=== PATIENT | female | born 1995 | race Caucasian/White ===

== ENCOUNTER 2021-07-31 16:36 | Emergency (ER) | payer BC, OTHER ==
[~2021-07-31] VITALS: Ht 165.1 cm; Wt 74.4 kg
[2021-07-31] MEDS ORDERED: KETOROLAC 30 MG/ML 1ML VIAL IM ONE (23:55)
--- NOTE | 2021-08-01 01:14 | REPVR ---
PROCEDURE INFORMATION: Exam: XR Right Knee Exam date and time: 08/01/2021 12:16 AM Age: 25 years old Clinical indication: Other: Knee pain TECHNIQUE: Imaging protocol: XR Right knee. Views: 4 or more views. COMPARISON: No relevant prior studies available. FINDINGS: Bones/joints: No radiographic evidence of joint effusion. Bones are aligned normally with normal mineralization. No fracture, evidence of stress fracture or osteochondral lesion. Joint spaces are well maintained. Soft tissues: No effacement of subcutaneous soft tissue planes. No abnormal soft tissue calcifications or masses. IMPRESSION: Normal knee radiographs. Electronically signed by: Trevon Castro On 08/01/2021 01:14:07 AM
[2021-08-01 01:46] VITALS: BP 118/65
== END 2021-08-01 01:49 | disposition home or self-care (01) ==
LOC: M ED 16:36
DX: S86.911A Strain of unspecified muscle(s) and tendon(s) at lower leg level, right leg, initial encounter (principal); X58.XXXA Exposure to other specified factors, initial encounter; Y92.89 Other specified places as the place of occurrence of the external cause; J45.909 Unspecified asthma, uncomplicated; F12.20 Cannabis dependence, uncomplicated
CPT/HCPCS: 73564; 96372; 99283; J1885

== ENCOUNTER 2022-05-26 00:16 | Emergency (ER) | payer BC, OTHER ==
[~2022-05-26] VITALS: Ht 167.6 cm; Wt 78.2 kg
[2022-05-26] MEDS ORDERED: VENTAER INH (06:31)
[2022-05-26] MEDS ORDERED: PRED20TA PO (06:31)
[2022-05-26 06:40] VITALS: BP 123/65
== END 2022-05-26 06:42 | disposition home or self-care (01) ==
LOC: M ED 00:16
DX: J45.909 Unspecified asthma, uncomplicated (principal); Z79.51 Long term (current) use of inhaled steroids